=== PATIENT | male | born 1970 | race Caucasian/White ===

== ENCOUNTER → 2018-06-20 10:54 | Outpatient (CLI) | payer OTHER, SELFPAY ==
--- NOTE | 2018-06-20 10:56 | DI.RAD.S_ITS ---
PROCEDURE: XR SHOULDER RT MIN 2V INDICATIONS: Acromioclavicular joint pain TECHNIQUE: 3 views of the shoulder were acquired. COMPARISON: None. FINDINGS: Bones: No fractures or dislocations. No suspicious bony lesions. Visualized ribs appear intact. Moderate AC joint degeneration. No definite AC joint space widening Soft tissues: No suspicious soft tissue calcifications. IMPRESSION: Moderate AC joint degeneration. Dictated by: Miguel Magaña M.D. on 06/20/2018 at 12:13 Approved by: Miguel Magaña M.D. on 06/20/2018 at 12:14
== END ==
PROVIDERS: PCP Family Medicine; Visit Provider Family Medicine
DX: M19.011 Primary osteoarthritis, right shoulder (principal); M25.511 Pain in right shoulder
CPT/HCPCS: 73030

== ENCOUNTER → 2020-12-16 11:33 | Outpatient (CLI) | payer OTHER, SELFPAY ==
--- NOTE | 2020-12-16 11:34 | DI.RAD.S_ITS ---
PROCEDURE: XR WRIST RT MIN 3V INDICATIONS: right wrist pain TECHNIQUE: 4 views of the wrist were acquired. COMPARISON: None. FINDINGS: Bones: No fractures or dislocations. No suspicious bony lesions. Scaphoid view: No visualized fracture. Soft tissues: No suspicious soft tissue calcifications. IMPRESSION: No visualized acute fracture or dislocation. However, if clinical concern and/or pain persist, short interval imaging followup in 7-10 days is recommended, as occult injury cannot be definitively excluded. Dictated by: Marla De Leon M.D. on 12/16/2020 at 12:14 Approved by: Marla De Leon M.D. on 12/16/2020 at 12:16
== END ==
PROVIDERS: Referring Provider Physician Assistant; Visit Provider Physician Assistant
DX: M25.531 Pain in right wrist (principal)
CPT/HCPCS: 73110

== ENCOUNTER → 2021-09-29 17:12 | Outpatient (CLI) | payer OTHER, SELFPAY ==
[2021-09-29 21:02] LABS: Urine N gonorrhoeae NOT DETECTED
[2021-09-29 21:06] LABS: Urine Chlamydia DETECTED
== END ==
PROVIDERS: Visit Provider Physician Assistant
DX: Z13.9 Encounter for screening, unspecified (principal); N34.3 Urethral syndrome, unspecified
CPT/HCPCS: 87086; 87491; 87591

== ENCOUNTER → 2023-11-14 12:48 | Outpatient (CLI) | payer OTHER, SELFPAY ==
[2023-11-14 13:41] LABS: Influenza A - CEPHEID Flu A NEGATIVE (NEGATIVE); Influenza B - CEPHEID Flu B NEGATIVE (NEGATIVE); Respiratory Syncytial Virus POSITIVE (Negative)
[2023-11-14 13:53] LABS: COVID-19 CEPHEID 4-PLEX PCR Negative (Negative)
== END ==
PROVIDERS: Visit Provider Nurse Practitioner Family
DX: R05.1 Acute cough (principal)
CPT/HCPCS: 0241U

== ENCOUNTER → 2023-12-19 12:32 | Outpatient (CLI) | payer OTHER, SELFPAY ==
[2023-12-19 13:46] LABS: Influenza A - CEPHEID Flu A POSITIVE (NEGATIVE); Influenza B - CEPHEID Flu B NEGATIVE (NEGATIVE); Respiratory Syncytial Virus Negative (Negative)
[2023-12-19 13:50] LABS: COVID-19 CEPHEID 4-PLEX PCR Negative (Negative)
== END ==
PROVIDERS: Visit Provider Nurse Practitioner Family
DX: B34.9 Viral infection, unspecified (principal)
CPT/HCPCS: 0241U